=== PATIENT | male | born 1955 | race Caucasian/White ===

== ENCOUNTER 2020-12-14 14:43 | Inpatient (IN) | payer OTHER ==
[2020-12-14] MEDS ORDERED: Diltiazem 125 MG/25 ML ONE (15:23)
[2020-12-14] MEDS ORDERED: Aspirin Chewable 81 MG TAB ONE (15:44)
[2020-12-14 15:47] LABS: #Basophils 0.1 10x3/uL (0.0-0.2); #Monocytes 0.5 10x3/uL (0.0-1.1); #Neutrophils 3.3 10x3/uL (1.5-8.4); %Basophils 1.3 % (0.0-2.0); %Eosinophils 0.4 % (0.0-6.0); %Lymphocytes 17.5 % (18.0-47.0); %Monocytes 10.1 % (0.0-10.0); %Neutrophils 70.1 % (40.0-75.0); Hemoglobin 15.1 g/dL (13.5-17.5); Mean Corpuscular HGB CONC 32.5 g/dL (32.0-36.0); Mean Corpuscular Hemoglobin 30.4 pg (27.0-33.0); Mean Corpuscular Volume 93.5 fl (81.2-95.1); Mean Platelet Volume 10.4 fl (7.4-10.4); Platelet Count 162 10x3/uL (150-450); RBC Distribution Width 14.6 % (11.5-14.5); Red Blood Cell (RBC) Count 4.96 10x6/uL (4.32-5.72); White Blood Cell (WBC) Count 4.7 10x3/uL (3.5-10.5)
[2020-12-14 15:52] LABS: ALT (SGPT) 16 U/L (8-55); AST (SGOT) 132 U/L (5-34); Albumin 3.7 g/dL (3.4-4.8); Alkaline Phosphatase 131 U/L (40-110); Anion Gap 13 mmol/L (10-20); BUN (Urea Nitrogen) 6 mg/dL (8.4-25.7); Bilirubin, Total 1.7 mg/dL (0.2-1.2); CK (CPK) 17 U/L (30-200); Calc. Creatinine Clearance 0 mL/min (70-130); Carbon Dioxide 23 mmol/L (23-31); Chloride 107 mmol/L (98-107); Globulin 3.7 g/dL (2.4-3.5); Glucose 107 mg/dL (80-115); Lipase 15 U/L (8-78); Potassium 4.3 mmol/L (3.5-5.1); Protein, Total 7.4 g/dL (5.8-8.1); Sodium 139 mmol/L (136-145)
[2020-12-14 15:59] LABS: Calcium 12.5 mg/dL (7.8-10.44)
[2020-12-14 18:08] LABS: SARS-CoV-2 NAA Rapid Test Not Detected (NotDetected)
[2020-12-14] MEDS ORDERED: Enoxaparin Sodium 120 MG/0.8 ML SYRINGE SC SCH (18:30)
[2020-12-14] MEDS ORDERED: Senokot S 8.6-50 MG TAB PO PRN (21:24)
[2020-12-14] MEDS ORDERED: Calcium Carbonate 500 MG ChewTAB PO PRN (21:24)
[2020-12-14] MEDS ORDERED: Acetaminophen 325 MG TAB PO PRN (21:24)
[2020-12-14 22:06] VITALS: BMI 29.2
[2020-12-14] MEDS ORDERED: FLU VACC QS2021-22(65YR UP)/PF 240 MCG/0.7 ML SYRINGE IM ONE (22:30)
[2020-12-14] MEDS ORDERED: Calcitonin,Salmon,Synthetic 200 UNITS/ML MDV SC SCH (22:30)
[2020-12-14] MEDS: HYDROcodone/Acetaminophen 5/325 mg Tablet PO PRN (23:26)
[2020-12-14 23:34] LABS: Troponin I Less than 0.010 ng/mL (< 0.028)
[2020-12-15 04:38] LABS: #Basophils 0.1 10x3/uL (0.0-0.2); #Monocytes 0.5 10x3/uL (0.0-1.1); #Neutrophils 3.3 10x3/uL (1.5-8.4); %Basophils 1.1 % (0.0-2.0); %Eosinophils 0.9 % (0.0-6.0); %Lymphocytes 15.2 % (18.0-47.0); %Monocytes 11.6 % (0.0-10.0); Hemoglobin 14.8 g/dL (13.5-17.5); Mean Corpuscular Hemoglobin 30.4 pg (27.0-33.0); Mean Corpuscular Volume 95.1 fl (81.2-95.1); Platelet Count 163 10x3/uL (150-450); RBC Distribution Width 14.5 % (11.5-14.5); Red Blood Cell (RBC) Count 4.87 10x6/uL (4.32-5.72); White Blood Cell (WBC) Count 4.7 10x3/uL (3.5-10.5)
[2020-12-15 04:54] LABS: Anion Gap 16 mmol/L (10-20); BUN (Urea Nitrogen) 6 mg/dL (8.4-25.7); Calc. Creatinine Clearance 169 mL/min (70-130); Calcium 11.3 mg/dL (7.8-10.44); Carbon Dioxide 22 mmol/L (23-31); Chloride 107 mmol/L (98-107); Glucose 102 mg/dL (80-115); Potassium 3.7 mmol/L (3.5-5.1); Sodium 141 mmol/L (136-145)
[2020-12-15 05:02] LABS: Troponin I Less than 0.010 ng/mL (< 0.028)
[2020-12-15] MEDS: Diltiazem 125 MG, Admixture Fee 1 EACH in Sodium Chloride 0.9% 100 ML IVPB SCH ×2 (06:02→22:50)
[2020-12-15] MEDS: Levothyroxine Sodium 50 MCG TAB PO SCH (06:03)
[2020-12-15] MEDS ORDERED: Furosemide 100 MG/10 ML VIAL SLOW IVP SCH (08:30)
[2020-12-15] MEDS: Ondansetron PF 4 MG/2 ML Vial IVP PRN ×2 (09:06→14:48)
[2020-12-15] MEDS: Famotidine 20 MG TAB PO SCH ×2 (09:07→20:18)
[2020-12-15] MEDS: Morphine IR Tab 15 MG TAB PO SCH ×2 (09:10→20:18)
[2020-12-15] MEDS: Enoxaparin Sodium 100 MG/ML SYRINGE SC SCH ×2 (09:11→20:18)
[2020-12-15] MEDS ORDERED: Potassium Chloride 20 MEQ TAB PO SCH (11:00)
[2020-12-15] MEDS: Furosemide 100 MG/10 ML VIAL SLOW IVP SCH (14:43)
[2020-12-15] MEDS: HYDROcodone/Acetaminophen 5/325 mg Tablet PO PRN (14:48)
[2020-12-15] MEDS: Budesonide 0.5 MG/2 ML NEB NEB SCH ×2 (18:51→19:05)
[2020-12-15] MEDS ORDERED: traZODone HCl 50 MG TAB PO PRN (21:00)
[2020-12-16 06:14] LABS: ALT (SGPT) 14 U/L (8-55); AST (SGOT) 129 U/L (5-34); Albumin 3.5 g/dL (3.4-4.8); Alkaline Phosphatase 142 U/L (40-110); Anion Gap 15 mmol/L (10-20); BUN (Urea Nitrogen) 5 mg/dL (8.4-25.7); Bilirubin, Total 1.2 mg/dL (0.2-1.2); Calc. Creatinine Clearance 150 mL/min (70-130); Carbon Dioxide 25 mmol/L (23-31); Chloride 104 mmol/L (98-107); Globulin 3.8 g/dL (2.4-3.5); Glucose 100 mg/dL (80-115); Magnesium 1.5 mg/dL (1.6-2.6); Potassium 4.2 mmol/L (3.5-5.1); Protein, Total 7.3 g/dL (5.8-8.1); Sodium 140 mmol/L (136-145)
[2020-12-16] MEDS: Furosemide 100 MG/10 ML VIAL SLOW IVP SCH ×2 (06:21→15:52)
[2020-12-16] MEDS: Levothyroxine Sodium 50 MCG TAB PO SCH (06:21)
[2020-12-16 06:24] LABS: Calcium 12.2 mg/dL (7.8-10.44)
[2020-12-16] MEDS: Budesonide 0.5 MG/2 ML NEB NEB SCH ×2 (07:00→19:15)
[2020-12-16] MEDS ORDERED: Calcitonin,Salmon,Synthetic 200 UNITS/ML MDV SC SCH (08:15)
[2020-12-16] MEDS ORDERED: Zoledronic Acid 4 MG in Sodium Chloride 0.9% 100 ML IVPB SCH (09:30)
[2020-12-16] MEDS ORDERED: Magnesium 2 GM/50 ML 2 GM in Premix Bag 1 BAG IVPB SCH (09:45)
[2020-12-16] MEDS: Morphine IR Tab 15 MG TAB PO SCH ×2 (10:26→20:32)
[2020-12-16] MEDS: Famotidine 20 MG TAB PO SCH ×2 (10:26→20:32)
[2020-12-16] MEDS: Enoxaparin Sodium 100 MG/ML SYRINGE SC SCH ×2 (10:27→20:32)
[2020-12-16] MEDS: Carvedilol 12.5 MG TAB PO SCH (15:52)
[2020-12-16] MEDS: HYDROcodone/Acetaminophen 5/325 mg Tablet PO PRN (16:03)
[2020-12-17] MEDS: Furosemide 100 MG/10 ML VIAL SLOW IVP SCH (05:32)
[2020-12-17] MEDS: Levothyroxine Sodium 50 MCG TAB PO SCH (05:32)
[2020-12-17] MEDS: HYDROcodone/Acetaminophen 5/325 mg Tablet PO PRN (05:33)
[2020-12-17] MEDS: Budesonide 0.5 MG/2 ML NEB NEB SCH (06:45)
[2020-12-17] MEDS ORDERED: Miconazole 2% Cream 30 GM TUBE TOP SCH (09:00)
[2020-12-17] MEDS: Carvedilol 12.5 MG TAB PO SCH (09:03)
[2020-12-17] MEDS: Famotidine 20 MG TAB PO SCH (09:03)
[2020-12-17] MEDS: Enoxaparin Sodium 100 MG/ML SYRINGE SC SCH (09:03)
[2020-12-17] MEDS: Morphine IR Tab 15 MG TAB PO SCH (09:18)
[2020-12-17] MEDS ORDERED: Morphine ER 15 MG TAB PO SCH ×2 (09:30→15:00)
[2020-12-17 13:16] VITALS: BP 103/66; TEMP 98.2
== END 2020-12-17 13:16 | disposition short-term general hospital (02) | DRG 308 ==
LOC: CSHERS 14:43 → CSHTELE 21:47 → EEVIPCON 21:47
PROVIDERS: ADMIT Student in an Organized Health Care Education/Training Program; ATTEND Internal Medicine
DX: I48.20 Chronic atrial fibrillation, unspecified (principal); I50.21 Acute systolic (congestive) heart failure; C22.8 Malignant neoplasm of liver, primary, unspecified as to type; C79.51 Secondary malignant neoplasm of bone; Z79.01 Long term (current) use of anticoagulants; E27.9 Disorder of adrenal gland, unspecified; E83.52 Hypercalcemia; Z20.822 Contact with and (suspected) exposure to COVID-19; E03.9 Hypothyroidism, unspecified; J44.9 Chronic obstructive pulmonary disease, unspecified; I87.2 Venous insufficiency (chronic) (peripheral); E83.42 Hypomagnesemia; Z87.891 Personal history of nicotine dependence; G47.00 Insomnia, unspecified; Z80.8 Family history of malignant neoplasm of other organs or systems; G89.3 Neoplasm related pain (acute) (chronic); I11.0 Hypertensive heart disease with heart failure; Z86.19 Personal history of other infectious and parasitic diseases; Z79.890 Hormone replacement therapy; Z79.899 Other long term (current) drug therapy; Z78.1 Physical restraint status
CPT/HCPCS: 36415; 71045; 71275; 80048; 80053; 82330; 82550; 83690; 83735; 83880; 84443; 84484; 85025; 93005; 93306; 93970; 96365; 96366; 96372; 96376; J0630; J1650; J1940; J2405; J3475; J3490; J7620; J7626; U0002

== ENCOUNTER 2021-01-12 17:45 | Observation (INO) | payer OTHER ==
[2021-01-12] MEDS ORDERED: Ondansetron PF 4 MG/2 ML Vial ONE (19:42)
[2021-01-12] MEDS ORDERED: Morphine 4 MG/ML VIAL ONE (19:42)
[2021-01-12 19:54] LABS: Hemoglobin 10.7 g/dL (13.5-17.5); Mean Corpuscular HGB CONC 31.2 g/dL (32.0-36.0); Mean Corpuscular Hemoglobin 28.5 pg (27.0-33.0); Mean Corpuscular Volume 91.2 fl (81.2-95.1); Mean Platelet Volume 10.1 fl (7.4-10.4); Platelet Count 187 10x3/uL (150-450); Red Blood Cell (RBC) Count 3.76 10x6/uL (4.32-5.72); White Blood Cell (WBC) Count 4.8 10x3/uL (3.5-10.5)
[2021-01-12 20:07] LABS: ALT (SGPT) 22 U/L (8-55); AST (SGOT) 54 U/L (5-34); Albumin 2.7 g/dL (3.4-4.8); Alkaline Phosphatase 188 U/L (40-110); Anion Gap 11 mmol/L (10-20); BUN (Urea Nitrogen) 11 mg/dL (8.4-25.7); Bilirubin, Total 1.1 mg/dL (0.2-1.2); Calc. Creatinine Clearance 0 mL/min (70-130); Calcium 8.2 mg/dL (7.8-10.44); Carbon Dioxide 24 mmol/L (23-31); Chloride 101 mmol/L (98-107); Globulin 6.1 g/dL (2.4-3.5); Glucose 122 mg/dL (80-115); Potassium 3.9 mmol/L (3.5-5.1); Protein, Total 8.8 g/dL (5.8-8.1); Sodium 132 mmol/L (136-145)
[2021-01-12 20:26] LABS: Lymphocytes 10 % (21-51); Monocytes 13 % (0-10)
[2021-01-12 20:27] LABS: Large Platelets SLIGHT; MDiff Complete? YES; Neutrophil 77 % (42-75); Platelet Morphology Comment Appears Adequate; RBC Morphology Normal; Vacuoles SLIGHT
[2021-01-12] MEDS ORDERED: methylPREDNISolone Sod Succ/PF 125 MG/2 ML VIAL ONE (20:54)
[2021-01-12 22:04] LABS: INR-International Normal Ratio 1.2; PTT 29.6 sec (22.0-33.0); Prothrombin Time 13.5 sec (9.5-12.1)
[2021-01-12 23:19] VITALS: BMI 82.3
[2021-01-12] MEDS ORDERED: Senokot S 8.6-50 MG TAB PO PRN (23:50)
[2021-01-12] MEDS ORDERED: HYDROcodone/Acetaminophen 10/325 mg Tablet PO PRN (23:50)
[2021-01-12] MEDS ORDERED: HYDROcodone/Acetaminophen 5/325 mg Tablet PO PRN (23:50)
[2021-01-13] MEDS ORDERED: Prochlorperazine Maleate 5 MG TAB PO PRN (00:40)
[2021-01-13] MEDS ORDERED: Metoprolol Tartrate 50 MG TAB PO SCH (00:45)
[2021-01-13] MEDS: Morphine 4 MG/ML VIAL SLOW IVP PRN ×2 (00:58→06:32)
[2021-01-13] MEDS: methylPREDNISolone Sod Succ 40 MG VIAL IVP SCH ×2 (00:58→11:02)
[2021-01-13] MEDS: Levothyroxine Sodium 50 MCG TAB PO SCH (06:02)
[2021-01-13 07:19] LABS: #Monocytes 0.1 10x3/uL (0.0-1.1); #Neutrophils 2.6 10x3/uL (1.5-8.4); %Lymphocytes 7.5 % (18.0-47.0); %Monocytes 4.1 % (0.0-10.0); Hemoglobin 10.2 g/dL (13.5-17.5); Mean Corpuscular HGB CONC 30.9 g/dL (32.0-36.0); Mean Corpuscular Hemoglobin 28.3 pg (27.0-33.0); Mean Corpuscular Volume 91.7 fl (81.2-95.1); Mean Platelet Volume 10.6 fl (7.4-10.4); Platelet Count 159 10x3/uL (150-450); RBC Distribution Width 15.1 % (11.5-14.5)
[2021-01-13 07:50] LABS: Anion Gap 12 mmol/L (10-20); BUN (Urea Nitrogen) 11 mg/dL (8.4-25.7); Calc. Creatinine Clearance 440 mL/min (70-130); Carbon Dioxide 25 mmol/L (23-31); Chloride 103 mmol/L (98-107); Glucose 243 mg/dL (80-115); Magnesium 1.8 mg/dL (1.6-2.6); Potassium 4.6 mmol/L (3.5-5.1); Sodium 135 mmol/L (136-145)
[2021-01-13 08:05] LABS: Syphilis Antibody Nonreactive (Nonreactive); Syphilis Antibody Index 0.09 S/CO (<1.00 Non-Reactive)
[2021-01-13] MEDS ORDERED: Ergocalciferol 1.25 MG(50,000 UNITS) CAP PO SCH (09:00)
[2021-01-13] MEDS: Gabapentin 100 MG CAP PO SCH ×2 (09:15→21:11)
[2021-01-13] MEDS: risperiDONE 0.5 MG TAB PO SCH ×2 (09:16→21:12)
[2021-01-13] MEDS: Loratadine 10 MG TAB PO SCH (09:17)
[2021-01-13] MEDS: Simethicone Chewable 80 MG TAB PO SCH ×4 (09:17→21:12)
[2021-01-13] MEDS: Apixaban 5 MG TAB PO SCH ×2 (09:17→21:12)
[2021-01-13] MEDS: Metoprolol Tartrate 50 MG TAB PO SCH ×2 (09:17→21:10)
[2021-01-13] MEDS: Furosemide 40 MG TAB PO SCH (09:17)
[2021-01-13 11:08] LABS: HIV (1/2) Antibody/Antigen Non-Reactive (NonReactive); HIV 1/2 INDEX 0.14 S/CO (<1.00)
[2021-01-13 11:21] LABS: Bilirubin Neg (Negative); Blood, Urine Negative (Negative); Clarity Clear (Clear); Glucose, Urine (Dipstick) Normal (Negative); Ketone, Urine Negative (Negative); Leukocyte Negative (Negative); Nitrite Negative (Negative); Protein, Urine (Dipstick) Negative (Neg-Trace); Specific Gravity, Urine 1.005 (1.002-1.036); Urobilinogen Normal mg/dL (Less than 2)
[2021-01-13 11:44] LABS: Bacteria/HPF None Seen HPF (None Seen); RBC/HPF None Seen HPF (0-3); Squamous Epithelial None Seen HPF (0-3); WBC/HPF None Seen HPF (0-3)
[2021-01-13] MEDS ORDERED: Lidocaine 1% w/Epinephrine 1:100K 20 ML VIAL FS SCH (15:45)
[2021-01-13] MEDS ORDERED: HumaLOG 300 UNITS/3 ML VIAL SC PRN (16:21)
[2021-01-13] MEDS ORDERED: Dextrose 50% Abboject 50 ML SYRINGE SLOW IVP PRN (16:21)
[2021-01-13] MEDS ORDERED: Dextrose 5% in Water 1,000 ML IV PRN (16:21)
[2021-01-13 17:22] LABS: SARS-CoV-2 PCR by NAA Not Detected (NotDetected)
[2021-01-13] MEDS ORDERED: Terazosin HCl 1 MG CAP PO SCH (21:00)
[2021-01-13] MEDS ORDERED: Atorvastatin Calcium 40 MG TAB PO SCH (21:00)
[2021-01-13] MEDS: Rifaximin 550 MG TAB PO SCH (21:10)
[2021-01-14] MEDS: methylPREDNISolone Sod Succ 40 MG VIAL IVP SCH ×2 (00:07→12:40)
[2021-01-14] MEDS: Morphine 4 MG/ML VIAL SLOW IVP PRN ×2 (01:34→10:54)
[2021-01-14] MEDS: Levothyroxine Sodium 50 MCG TAB PO SCH (05:56)
[2021-01-14 07:44] VITALS: TEMP 98.4
[2021-01-14 08:32] LABS: #Monocytes 0.4 10x3/uL (0.0-1.1); #Neutrophils 4.3 10x3/uL (1.5-8.4); %Lymphocytes 6.8 % (18.0-47.0); %Neutrophils 84.8 % (40.0-75.0); Hemoglobin 10.2 g/dL (13.5-17.5); Mean Corpuscular HGB CONC 30.5 g/dL (32.0-36.0); Mean Corpuscular Hemoglobin 28.3 pg (27.0-33.0); Mean Corpuscular Volume 92.5 fl (81.2-95.1); Mean Platelet Volume 10.5 fl (7.4-10.4); Platelet Count 166 10x3/uL (150-450); RBC Distribution Width 14.9 % (11.5-14.5); Red Blood Cell (RBC) Count 3.61 10x6/uL (4.32-5.72)
[2021-01-14] MEDS: Simethicone Chewable 80 MG TAB PO SCH ×2 (08:43→13:06)
[2021-01-14] MEDS: risperiDONE 0.5 MG TAB PO SCH (08:43)
[2021-01-14] MEDS: Furosemide 40 MG TAB PO SCH (08:44)
[2021-01-14] MEDS: Loratadine 10 MG TAB PO SCH (08:44)
[2021-01-14] MEDS: Metoprolol Tartrate 50 MG TAB PO SCH (08:44)
[2021-01-14] MEDS: Gabapentin 100 MG CAP PO SCH (08:44)
[2021-01-14] MEDS: Rifaximin 550 MG TAB PO SCH (08:44)
[2021-01-14] MEDS: Apixaban 5 MG TAB PO SCH (08:44)
[2021-01-14 09:05] LABS: ALT (SGPT) 17 U/L (8-55); AST (SGOT) 42 U/L (5-34); Albumin 2.6 g/dL (3.4-4.8); Alkaline Phosphatase 182 U/L (40-110); Anion Gap 11 mmol/L (10-20); BUN (Urea Nitrogen) 12 mg/dL (8.4-25.7); Bilirubin, Total 0.6 mg/dL (0.2-1.2); Calc. Creatinine Clearance 184 mL/min (70-130); Calcium 8.2 mg/dL (7.8-10.44); Carbon Dioxide 24 mmol/L (23-31); Chloride 108 mmol/L (98-107); Globulin 5.4 g/dL (2.4-3.5); Glucose 139 mg/dL (80-115); Potassium 4.2 mmol/L (3.5-5.1); Sodium 139 mmol/L (136-145)
[2021-01-14 11:15] LABS: Hemoglobin A1c 5.4 % (4.0-6.0)
[2021-01-14 16:06] VITALS: BP 163/84
[2021-01-15 17:37] LABS: Hep C PCR-Quant HCV Not Detected IU/mL (.)
[2021-01-16 13:13] LABS: Hep B Surface AG-Rflx Sendout Negative (Negative); Hepatitis B Core Total Negative (Negative); Hepatitis B Surface AB-Sendout Non Reactive (.)
[2021-01-16 17:53] LABS: ANA Symphony (Qualitative) Negative (Negative); ANA Symphony (Quantitative) 0.3 Ratio (< 0.7 Negative)
== END 2021-01-14 14:45 ==
LOC: CSHERS 17:45 → INTOOBSV 17:46 → CSHTELE 17:46
PROVIDERS: ADMIT Family Medicine; ATTEND Family Medicine
DX: M31.0 Hypersensitivity angiitis (principal); C22.8 Malignant neoplasm of liver, primary, unspecified as to type; C79.51 Secondary malignant neoplasm of bone; I11.0 Hypertensive heart disease with heart failure; I50.22 Chronic systolic (congestive) heart failure; I48.0 Paroxysmal atrial fibrillation; E03.9 Hypothyroidism, unspecified; N40.0 Benign prostatic hyperplasia without lower urinary tract symptoms; Z79.899 Other long term (current) drug therapy; J44.9 Chronic obstructive pulmonary disease, unspecified; Z87.891 Personal history of nicotine dependence; F10.20 Alcohol dependence, uncomplicated; G89.3 Neoplasm related pain (acute) (chronic); Z20.822 Contact with and (suspected) exposure to COVID-19
CPT/HCPCS: 36415; 36416; 80048; 80053; 81001; 82595; 83036; 83520; 83605; 83735; 84443; 85025; 85610; 85730; 86038; 86140; 86160; 86225; 86704; 86705; 86706; 86707; 86780; 87040; 87340; 87350; 87389; 87522; 88305; 93005; 93010; 96374; 96375; J1815; J2270; J2405; J2920; J2930; Q0164; U0003; U0005

== ENCOUNTER 2021-01-15 00:56 | Emergency (ER) | payer OTHER ==
[2021-01-15] MEDS ORDERED: Ketorolac Tromethamine 30 MG/ML VIAL ONE (01:38)
[2021-01-15] MEDS ORDERED: Morphine 10 MG/ML VIAL ONE (01:39)
== END 2021-01-15 01:46 ==
LOC: CSHERS 00:56 → EEVIPCON 00:56 → CSHERS 01:46
DX: R10.11 Right upper quadrant pain (principal); I10 Essential (primary) hypertension; E03.9 Hypothyroidism, unspecified; C22.8 Malignant neoplasm of liver, primary, unspecified as to type; C79.51 Secondary malignant neoplasm of bone; Z79.01 Long term (current) use of anticoagulants; Z79.899 Other long term (current) drug therapy
CPT/HCPCS: 96372; 99284; J1885; J2270